=== PATIENT | male | born 1990 | race Caucasian/White ===

== ENCOUNTER 2020-12-17 05:22 | Emergency (ER) | payer SELFPAY ==
[~2020-12-17] VITALS: Ht 188 cm; Wt 145.1 kg
--- NOTE | 2020-12-17 05:30 | NUR ---
Patient to ER bed 8 to gown for evaluation. Side rails up. Report given to EMILY DAVIS.
[2020-12-17 05:31] VITALS: BP_SYST 134
--- NOTE | 2020-12-17 05:32 | NUR ---
PATIENT AAOX 4 AND AMBULATORY C/O LEFT LOWER TOOTHACHE STARTING X2 DAYS AGO. PATIENT STATED TAKING MOTRIN WITH NO RELIEF. CURRENTLY STATING 8/10 ON THE PAIN SCALE. 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 STATING HAVING MINOR DRAINAGE NOTED AT HOME. NOTED MINOR SWELLING TO OUTSIDE TO CHEEK. VSS. NO DISTRESS NOTED.
--- NOTE | 2020-12-17 05:41 | NUR ---
DR. CALLAWAY AT BEDSIDE FOR PATIENT EVALUATION.
[2020-12-17] MEDS ORDERED: LIDOCAINE 2%, 20 ML MDV INJ ONE (05:45)
[2020-12-17] MEDS ORDERED: AMOXICILLIN/CLAVULANATE POTASSIUM 875 MG TABLET PO ONE (05:45)
[2020-12-17] MEDS ORDERED: AMOX-426 PO (05:48)
[2020-12-17] MEDS ORDERED: IBUP-1971 PO (05:48)
[2020-12-17] MEDS ORDERED: LIDOCAINE 2%, 20 ML MDV ONE (05:49)
--- NOTE | 2020-12-17 05:51 | NUR ---
MEDICATION ADMINISTERED ORDERED.
[2020-12-17 06:00] VITALS: BP_SYST 134
--- NOTE | 2020-12-17 06:08 | NUR ---
Patient given written and verbal discharge instructions and verbalizes understanding. Dr. Marii MARTINEZ MD discussed with patient the results and treatment provided. Patient in stable condition. ID arm band removed. Rx of Motrin, Augmentin given. Patient educated on pain management and to follow up with PMD. Pain Scale 0/10. Opportunity for questions provided and answered. Medication side effect fact sheet provided.
== END 2020-12-17 06:00 | disposition home or self-care (01) ==
LOC: SED 05:22
DX: K08.89 Other specified disorders of teeth and supporting structures (principal); K05.10 Chronic gingivitis, plaque induced
CPT/HCPCS: 64400; 99284; J2001